=== PATIENT | male | born 1960 | race Two or more races ===

== ENCOUNTER → 2017-10-11 | Outpatient (CLI) | payer BC ==
[~2017-10-11] MED LIST: ALLOPURINOL100 MG PO; ASPIR 8181 MG PO; FISH OIL 1,0001 EAC2 PO; GEMFIBROZIL600 MG PO; LISINOPRIL2.5 MG PO; LIVALO4 MG PO; METFORMIN HCL500 MG PO
--- NOTE | 2017-10-11 11:51 | Diagnostic Imaging Report ---
PROCEDURE:X-RAY ABDOMEN - [facility] COMPARISON:12/14/2016, 02/23/2017. INDICATIONS:CALCULUS OF KIDNEY FINDINGS: As before, fecal material overlies the left renal shadow, with nonvisualization of the previously described 5 mm calculus. Bilateral pelvic phleboliths are unchanged. No additional calcifications project over the renal shadows. No mass effect or organomegaly. Regional skeletal structures are intact. CONCLUSION: Previously described 5 mm left interpolar calculus is again poorly visualized secondary to overlying bowel gas. Dictated by: Van Batista M.D. on 10/11/2017 at 11:54 Electronically approved by: Van Batista M.D. on 10/11/2017 at 11:54
== END ==
LOC: RAD 11:10
PROVIDERS: ATTEND Urology
DX: N20.0 Calculus of kidney (principal)
CPT/HCPCS: 74018

== ENCOUNTER → 2017-11-10 | Outpatient (CLI) | payer BC ==
--- NOTE | 2017-11-10 16:16 | Diagnostic Imaging Report ---
EXAM: CT Abdomen and Pelvis WITHOUT contrast INDICATION: \[id number] \[id number] \S\RENAL CALCULUS COMPARISON: Abdominal x-ray dated 10/11/2017 TECHNIQUE: Abdomen and pelvis were scanned utilizing a multidetector helical scanner from the lung base to the pubic symphysis without administration of IV contrast. Absence of intravenous contrast decreases sensitivity for detection of focal lesions and vascular pathology. Coronal and sagittal reformations were obtained. Routine protocol was performed. IV CONTRAST: None ORAL CONTRAST: Water COMPLICATIONS: None RADIATION DOSE: Total DLP: 521.87 mGy*cm Estimated effective dose: (DLP x 0.015 x size factor) mSv CTDIvol has been reviewed. It is below the limits set by the Radiation Protocol Committee (RPC). FINDINGS: LINES and TUBES: None. LOWER THORAX: Unremarkable. Tiny subpleural left lower lobe calcified granuloma. HEPATOBILIARY: Diffuse hepatic steatosis. No biliary ductal dilation. GALLBLADDER: Small calcified gallstones. No wall thickening. SPLEEN: Splenomegaly measuring 14 cm. PANCREAS: No focal masses or ductal dilatation. ADRENALS: No adrenal nodules. Scattered calcifications of the right adrenal gland. KIDNEYS/URETERS: No hydronephrosis. No cystic or solid mass lesions. 3 mm right superior pole, 2 mm mid pole, and two punctate lower pole renal calculi. No left renal calculus. Nonspecific bilateral perinephric fat stranding. GI TRACT: No abnormal distention, wall thickening, or evidence of bowel obstruction. Few scattered colonic diverticula without evidence of diverticulitis. Appendix is normal. PELVIC ORGANS/BLADDER: Unremarkable. Pelvic phleboliths. LYMPH NODES: No lymphadenopathy. VESSELS: Mild aortoiliac atherosclerotic disease. PERITONEUM / RETROPERITONEUM: No free air or fluid. BONES: Unremarkable. Degenerative changes of spine. SOFT TISSUES: Unremarkable. IMPRESSION: 1. Subcentimeter nonobstructive right renal calculi. 2. Hepatic steatosis. 3. Cholelithiasis without CT evidence of cholecystitis. Signed by: Dr. Rajendra Monaco MD on 11/10/2017 4:13 PM
== END ==
LOC: CT 14:37
PROVIDERS: ATTEND Urology
DX: N20.0 Calculus of kidney (principal)
CPT/HCPCS: 74176

== ENCOUNTER → 2018-04-17 | Outpatient (CLI) | payer BC ==
--- NOTE | 2018-04-17 18:21 | Diagnostic Imaging Report ---
EXAM: ABDOMEN-1VIEW ([facility]), DATE: 04/17/2018 4:33 PM INDICATION: Calculus of kidney. COMPARISON: KUB 10/11/2017. CT abdomen pelvis dated 11/10/2017. FINDINGS: LINES/TUBES: None BOWEL PATTERN: No evidence for obstruction. SOFT TISSUES: Punctate right renal calculi present on recent CT examination are not well seen on today's exam due to technical difference. Calcific density is projected on the pelvis laterally bilaterally more numerous on the right suggestive of phleboliths, unchanged. LUNG BASES: No acute abnormality. BONES: No acute findings. IMPRESSION: Punctate right renal calculi present on recent CT examination are not well seen on today's exam. Signed by: Dr. Nargis Carrera M.D. on 04/17/2018 6:18 PM
== END ==
LOC: RAD 16:24
PROVIDERS: ATTEND Urology
DX: N20.0 Calculus of kidney (principal)
CPT/HCPCS: 74018

== ENCOUNTER → 2019-03-06 | Outpatient (CLI) | payer BC, OTHER ==
--- NOTE | 2019-03-06 10:53 | Diagnostic Imaging Report ---
Abdomen, 1 view. History: Stones. Comparison: 04/17/2018. Findings: Air is scattered throughout nondilated small and large bowel. No stones are seen in the region of the kidneys. Pelvic phleboliths are unchanged. There are no masses or abnormal calcifications. The osseous structures are intact. IMPRESSION: Non-specific bowel gas pattern. Signed by: Edmundo Arrington on 03/06/2019 10:50 AM
== END ==
LOC: RAD 09:31
PROVIDERS: ATTEND Urology
DX: N20.0 Calculus of kidney (principal)
CPT/HCPCS: 74018

== ENCOUNTER → 2021-03-16 | Outpatient (CLI) | payer BC | LOC: US 09:53 | PROVIDERS: ATTEND Urology | DX: R31.21 Asymptomatic microscopic hematuria (principal) | CPT/HCPCS: 74018; 76770 ==

== ENCOUNTER → 2021-04-02 | Outpatient (CLI) | payer BC | LOC: CT 11:17 | PROVIDERS: ATTEND Urology | DX: N20.0 Calculus of kidney (principal) | CPT/HCPCS: 74176 ==

== ENCOUNTER → 2022-03-17 | Outpatient (CLI) | payer BC | LOC: CT 15:59 | PROVIDERS: ATTEND Urology | DX: N20.0 Calculus of kidney (principal) | CPT/HCPCS: 74176 ==